=== PATIENT | female | born 1960 | race Caucasian/White ===

== ENCOUNTER 2017-08-06 09:13 | Emergency (ER) | payer SELFPAY ==
[2017-08-06 10:06] VITALS: BP 150/90
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
== END 2017-08-06 10:27 | disposition home or self-care (01) ==
LOC: UCEAST 09:13
DX: S40.022A Contusion of left upper arm, initial encounter (principal); E11.9 Type 2 diabetes mellitus without complications; I10 Essential (primary) hypertension; S00.432A Contusion of left ear, initial encounter; V43.52XA Car driver injured in collision with other type car in traffic accident, initial encounter; Y92.9 Unspecified place or not applicable
CPT/HCPCS: 99211; G0463

== ENCOUNTER 2017-11-27 13:46 | Emergency (ER) | payer BC, OTHER ==
[2017-11-27 14:12] VITALS: BP 152/89
--- NOTE | 2017-11-27 14:17 | UC ---
Respiratory Complaint HPI - HPI Summary HPI Summary: 57 y/o female presents to the urgent care c/o dry cough with cold symptoms for the past 5 days. Symptoms have worsen for the past 2 days. She now has SOB, SNYDER and wheezing. She has Hx of asthma that has been controlled for many years. She doesn't have and albuterol inhaler. Nasal congestion with yellowish nasal discharge. Pt reports she had the influenza vaccine last year. Pt denies fever, chest pain,abdominal pain, N/V/D - History of Current Complaint Chief Complaint: UCRespiratory Stated Complaint: COUGH Time Seen by Provider: 11/27/17 14:16 Hx Obtained From: Patient Hx Last Menstrual Period: 02/02/14 ?: No - menopausal Onset/Duration: Gradual Onset, Lasting Days - 5 days, Still Present, Worse Since - 2 days Timing: Constant Severity Initially: Mild Severity Currently: Moderate Pain Intensity: 2 - headache Pain Scale Used: 0-10 Numeric Character: Cough: Nonproductive Aggravating Factors: Recumbent Position Alleviating Factors: OTC Meds Associated Signs And Symptoms: Positive: Chills, Wheezing, URI, Nasal Congestion , Sinus Discomfort. Negative: Fever - Risk Factors Pulmonary Embolism Risk Factors: Negative Cardiac Risk Factors: Negative Pseudomonas Risk Factors: Negative Tuberculosis Risk Factors: Negative - Allergies/Home Medications Allergies/Adverse Reactions: Allergies Allergy/AdvReac Type Severity Reaction Status Date / Time Lisinopril Allergy Coughing Verified 11/27/17 14:03 Home Medications: Home Medications Ibuprofen TAB* [Advil TAB*] 400 mg PO Q6H PRN 11/27/17 [History Confirmed ] Multiple Vitamins W/ Minerals [Multivitamin Womens] 1 tab PO DAILY 11/27/17 [ History Confirmed 11/27/17] Phenylephrine-Chlorpheniramine [Pamela-[place] Plus Cold & 5-2-10-325 mg] 1 cap PO PRN 11/27/17 [History] PMH/Surg Hx/FS Hx/Imm Hx Previously Healthy: Yes Cardiovascular History: Hypertension - diet control Respiratory History: Asthma - Surgical History Surgical History: Yes Surgery Procedure, Year, and Place: Gallbladder, D&C, Hernia repair x2, tubal, tonsilectomy, bypass sleeve - Family History Known Family History: Positive: Hypertension, Diabetes - Social History Occupation: Employed Full-time Lives: With Family Alcohol Use: None Substance Use Type: None Smoking Status (MU): Never Smoked Tobacco Household Exposure Type: Cigarettes - Immunization History Most Recent Influenza Vaccination: JUL 2017 Review of Systems Constitutional: Chills Skin: Negative Eyes: Negative ENT: Nasal Discharge, Sinus Congestion Respiratory: Shortness Of Breath, Cough, Other - wheezing Cardiovascular: Negative Gastrointestinal: Negative Genitourinary: Negative Motor: Negative Neurovascular: Negative Musculoskeletal: Negative Neurological: Headache Psychological: Negative Is Patient Immunocompromised?: No All Other Systems Reviewed And Are Negative: Yes Physical Exam Triage Information Reviewed: Yes Vital Signs: Initial Vital Signs Temp 98.8 F 11/27/17 14:05 Pulse 74 11/27/17 14:05 Resp 20 11/27/17 14:05 BP 152/89 11/27/17 14:05 Pulse Ox 99 11/27/17 14:05 - Additional Comments VITAL SIGNS: Reviewed. GENERAL: Patient is a well developed and nourished female with w/o any apparent acute distress. Pt able to speak in full sentences. HEAD AND FACE: Normocephalic and atraumatic. EYES: PERRLA, EOMI x 2, No injected conjunctiva. EARS: Hearing grossly intact. Ear canals and tympanic membranes WNL MOUTH: Dry oral mucosa. NECK: Supple, trachea is midline, no adenopathy, no JVD, no carotid bruit. CHEST: Symmetric, No intercostal or abdominal retraction, LUNGS: Positive breath sounds. Scattered bilateral wheezing, mild rhonchi. No crackles or rales CVS: RRR,, S1 and S2 present, no murmurs or gallops appreciated. ABDOMEN: Soft, non-tender. No signs of distention. Positive BS. No rebound, no guarding, and no masses palpated. EXTREMITIES: FROM in all major joints, no edema, no cyanosis or clubbing. NEURO: Alert and oriented x 3. No acute neurological deficits. Speech is normal and follows commands. SKIN: Dry and warm UC Diagnostic Evaluation - Laboratory O2 Sat by Pulse Oximetry: 99 Respiratory Course/Dx - Course Course Of Treatment: 57 y/o female presents to the urgent care c/o dry cough with cold symptoms for the past 5 days. Symptoms have worsen for the past 2 days. She now has SOB, SNYDER and wheezing. She has Hx of asthma that has been controlled for many years. She doesn't have and albuterol inhaler. Nasal congestion with yellowish nasal discharge. Pt reports she had the influenza vaccine last year. Pt denies fever, chest pain,abdominal pain, N/V/D. Hx obtained. Asthma exacerbation: due to Acute Bronchitis: Albuterol Treatment: 1 Tx given to patient and Prednisone 60mg PO . Patient tolerated well treatment and lungs improved, mild wheezing only in posterior RT lung, O2 sat 99%. Pt RX Z-steven. Albuterol inhaler, Prednisone PO taper dose. The patient was recommended to increase fluid intake. Take medications as recommended. Pt's BP is elevated today advised to decrease salt in diet, monitor BP and f/u with PCP for further management. Patient Advised to return to the clinic or go to the nearest ER if symptoms do not improve or worsen. Patient understood and agree with plan of care. - Differential Dx/Diagnosis Differential Diagnosis/HQI/PQRI: Asthma, Bronchitis, Influenza, Lower Resp Infection, Sinusitis Provider Diagnoses: 1- Acute asthma exacerbation. 2-Acute bronchitis. 3- Uncontrolled HTN Discharge - Discharge Plan Condition: Stable Disposition: HOME Prescriptions: Albuterol 2.5MG/3ML (0.083%)* [Ventolin 2.5 MG/3 ML NEB.TWIN*] 2.5 mg INH Q6H #1 steven Albuterol HFA INHALER* [Ventolin HFA Inhaler*] 2 puff INH Q4H PRN #1 mdi PRN Reason: Wheezing Azithromyxin STEVEN (NF) [Z-Steven (Zithromax) 250 mg tabs #6] 2 tab PO .TODAY, THEN 1 DAILY #6 tab Benzonatate CAP* [Tessalon 100 MG CAP*] 100 mg PO TID #21 cap predniSONE TAB* [Deltasone TAB*] 20 mg PO DAILY #8 tab Patient Education Materials: Asthma (ED), Acute Bronchitis (ED), Low-Sodium Diet (ED) Forms: *Work Release Referrals: Artemio Heaton MD [Primary Care Provider] - Additional Instructions: 1-Please take full course of antibiotic to avoid resistance. 2-Take Tessalon PO tabs as directed and use the albuterol inhaler to alleviate cough. Increase fluid intake, rest and eat well. 3- If symptoms do not improve or worsen or your develop SOB with fever and severe wheezing please go immediately to the ER further evaluation and treatment. 4- F/u with your PCP in 2-3 days for further management on your Asthma 5-Your BP is elevated today. please decrease salt in your diet, monitor BP and if it continues to be elevated please f/u with your PCP for further management
[2017-11-27] MEDS ORDERED: predniSONE TAB* 20 MG PO ONE (14:33)
[2017-11-27] MEDS ORDERED: Albuterol 2.5 MG/3 ML NEB.SOL* (0.083%) INH ONE (14:34)
== END 2017-11-27 15:16 | disposition home or self-care (01) ==
LOC: UCCORT 13:46
DX: J45.901 Unspecified asthma with (acute) exacerbation (principal); I10 Essential (primary) hypertension
CPT/HCPCS: 87502; 99212; G0463; J7512

== ENCOUNTER 2018-12-30 18:05 | Emergency (ER) | payer BC ==
[2018-12-30 18:15] VITALS: BP 178/80
[2018-12-30] MEDS ORDERED: Ibuprofen TAB* 600 MG PO ONE (18:39)
--- NOTE | 2018-12-30 18:42 | UC ---
Lower Extremity/Ankle HPI - HPI Summary HPI Summary: 58 yo female presents with right foot and ankle pain. She tells me that 2 days ago while walking she developed right foot pain that was on the pad of her foot. Has been persisting since that time and now feels it go up into the lateral aspect of her ankle. She is ambulatory without assistance, but has a significant limp. Has been taking advil for pain with mild relief. Denies specific injury, numbness, or tingling. - History of Current Complaint Chief Complaint: UCLowerExtremity Stated Complaint: FOOT AND ANKLE PAIN Time Seen by Provider: 12/30/18 18:35 Hx Obtained From: Patient Hx Last Menstrual Period: 02/02/14 Onset/Duration: Sudden Onset Severity Initially: Moderate Severity Currently: Moderate Pain Intensity: 7 Pain Scale Used: 0-10 Numeric Aggravating Factor(s): Standing, Ambulation Alleviating Factor(s): Rest, Elevation Able to Bear Weight: Yes - Allergies/Home Medications Allergies/Adverse Reactions: Allergies Allergy/AdvReac Type Severity Reaction Status Date / Time lisinopril Allergy Coughing Verified 12/30/18 18:15 lasix Allergy Unknown Uncoded 04/25/18 08:27 Reaction Details Home Medications: Home Medications Ibuprofen TAB* [Advil TAB*] 400 mg PO Q6H PRN 12/30/18 [History Confirmed ] Mv-Mn/Folic Acid/Calcium/Vit K [Women's 50 Plus Daily Formula] 1 each PO DAILY 12/30/18 [History Confirmed 12/30/18] PMH/Surg Hx/FS Hx/Imm Hx Cardiovascular History: Hypertension - Surgical History Surgical History: Yes Surgery Procedure, Year, and Place: Gallbladder, D&C, Hernia repair x2, tubal, tonsilectomy, bypass sleeve - Family History Known Family History: Positive: Hypertension, Diabetes - Social History Occupation: Employed Full-time Lives: With Family Alcohol Use: None Substance Use Type: None Smoking Status (MU): Never Smoked Tobacco Household Exposure Type: Cigarettes - Immunization History Most Recent Influenza Vaccination: JUL 2017 Review of Systems All Other Systems Reviewed And Are Negative: Yes Constitutional: Positive: Negative Respiratory: Positive: Negative Cardiovascular: Positive: Negative Neurovascular: Positive: Negative Musculoskeletal: Positive: Other: - Right foot and ankle pain Neurological: Positive: Negative Psychological: Positive: Negative Physical Exam - Summary Physical Exam Summary: GENERAL: NAD. WDWN. No pain distress. SKIN: No rashes, sores, lesions, or open wounds. CHEST: No accessory muscle use. Breathing comfortably and in no distress. CV: Pulses intact PT and DP. Cap refill <2seconds MSK: RIGHT FOOT: Mild TTP along 5th MT. Strength 5/5. No edema or obvious bony deformities. RIGHT ANKLE: Mild TTP over lateral aspect. Negative talar tilt. No increased laxity. Negative Myrtle test. NEURO: Alert. Sensations intact and symmetric B/L LEs PSYCH: Age appropriate behavior. Triage Information Reviewed: Yes Vital Signs: Initial Vital Signs Temp 97.3 F 12/30/18 18:09 Pulse 79 12/30/18 18:09 Resp 16 12/30/18 18:09 BP 178/80 12/30/18 18:09 Pulse Ox 100 12/30/18 18:09 Vital Signs Reviewed: Yes Lower Extremity Course/Dx - Course Course Of Treatment: XR: No radiologist reading after 1800, therefore wet read by myself is negative for fracture. Suspect foot strain. Discussed with pt and advised to continue RICE and use a CAM boot for relief. She says that she has a CAM boot at home and will use this. F/u with PCP if symptoms do not improve. - Differential Dx/Diagnosis Provider Diagnosis: Right foot strain Discharge - Sign-Out/Discharge Documenting (check all that apply): Patient Departure All imaging exams completed and their final reports reviewed: No - Discharge Plan Condition: Stable Disposition: HOME Patient Education Materials: Metatarsalgia (DC) Forms: *Work Release Referrals: Artemio Heaton MD [Primary Care Provider] - Additional Instructions: If you develop a fever, shortness of breath, chest pain, new or worsening symptoms - please call your PCP or go to the ED. Your blood pressure was high at todays visit. Please see your primary provider within 4 weeks for recheck and re-evaluation. Rest, Ice, and Elevate your foot. If your symptoms do not improve within a few days, please be rechecked by your primary doctor - Billing Disposition and Condition Condition: STABLE Disposition: Home
--- NOTE | 2018-12-31 08:32 | UC ---
- EKG/XRAY/CT XRAY: ankle - Right foot and ankle - No acute fracture seen Course/Dx - Diagnoses Provider Diagnoses: Right foot strain Discharge - Sign-Out/Discharge Documenting (check all that apply): Post-Discharge Follow Up All imaging exams completed and their final reports reviewed: Yes - Discharge Plan Condition: Stable Disposition: HOME Patient Education Materials: Metatarsalgia (DC) Forms: *Work Release Referrals: Artemio Heaton MD [Primary Care Provider] - Additional Instructions: If you develop a fever, shortness of breath, chest pain, new or worsening symptoms - please call your PCP or go to the ED. Your blood pressure was high at todays visit. Please see your primary provider within 4 weeks for recheck and re-evaluation. Rest, Ice, and Elevate your foot. If your symptoms do not improve within a few days, please be rechecked by your primary doctor - Billing Disposition and Condition Condition: STABLE Disposition: Home
== END 2018-12-30 19:26 | disposition home or self-care (01) ==
LOC: UCEAST 18:05
DX: S96.911A Strain of unspecified muscle and tendon at ankle and foot level, right foot, initial encounter (principal); I10 Essential (primary) hypertension; Z91.040 Latex allergy status; Z88.8 Allergy status to other drugs, medicaments and biological substances; X58.XXXA Exposure to other specified factors, initial encounter; Y92.9 Unspecified place or not applicable
CPT/HCPCS: 99211; A9270-GY; G0463

== ENCOUNTER 2019-04-28 17:17 | Emergency (ER) | payer BC ==
[2019-04-28 17:47] VITALS: BP 147/73
--- NOTE | 2019-04-28 18:02 | UC ---
Skin Complaint HPI - HPI Summary HPI Summary: 58 yo with chronic sever LE edema presents with lwft lower leg redness (to the anterior leg) no fever - History of Current Complaint Chief Complaint: UCLowerExtremity Time Seen by Provider: 04/28/19 17:55 Stated Complaint: LEG SWELLING, REDNESS Hx Obtained From: Patient Hx Last Menstrual Period: 02/02/14 Onset/Duration: Gradual Onset, Lasting Hours Timing: Constant Onset Severity: Mild Current Severity: Moderate Pain Intensity: 2 Pain Scale Used: 0-10 Numeric Location: Diffuse Character: Swelling, Redness Aggravating Factor(s): Nothing Alleviating Factor(s): Nothing Associated Signs & Symptoms: Positive: Nausea, Tenderness - Allergy/Home Medications Allergies/Adverse Reactions: Allergies Allergy/AdvReac Type Severity Reaction Status Date / Time lisinopril Allergy Coughing Verified 04/28/19 17:47 lasix Allergy Unknown Uncoded 04/28/19 17:47 Reaction Details Home Medications: Home Medications Allopurinol TAB* [Zyloprim 100 MG TAB*] 100 mg PO DAILY 04/28/19 [History Confirmed 04/28/19] Valsartan TAB* [Diovan TAB*] 40 mg PO DAILY 04/28/19 [History Confirmed 04/28/19 ] amLODIPine TAB* [Norvasc 5 mg TAB*] 5 mg PO DAILY 04/28/19 [History Confirmed ] PMH/Surg Hx/FS Hx/Imm Hx Previously Healthy: Yes - Surgical History Surgical History: Yes Surgery Procedure, Year, and Place: Gallbladder, D&C, Hernia repair x2, tubal, tonsilectomy,. bypass sleeve, 2014 - Family History Known Family History: Positive: Hypertension, Diabetes - Social History Alcohol Use: None Substance Use Type: None Smoking Status (MU): Never Smoked Tobacco Household Exposure Type: Cigarettes - Immunization History Most Recent Influenza Vaccination: JUL 2017 Review of Systems All Other Systems Reviewed And Are Negative: Yes Constitutional: Positive: Negative Skin: Positive: Negative Eyes: Positive: Negative ENT: Positive: Negative Respiratory: Positive: Negative Cardiovascular: Positive: Negative Gastrointestinal: Positive: Negative Genitourinary: Positive: Negative Motor: Positive: Negative Musculoskeletal: Positive: Edema Neurological: Positive: Negative Psychological: Positive: Negative Physical Exam Triage Information Reviewed: Yes Appearance: Well-Appearing, No Pain Distress, Other: - BMI58 Vital Signs: Initial Vital Signs Temp 98.5 F 04/28/19 17:42 Pulse 76 04/28/19 17:42 Resp 16 04/28/19 17:42 BP 147/73 04/28/19 17:42 Pulse Ox 98 04/28/19 17:42 Vital Signs Reviewed: Yes Eyes: Positive: Conjunctiva Clear ENT: Positive: Hearing grossly normal. Negative: Nasal congestion, Nasal drainage, Trismus, Muffled voice, Hoarse voice Respiratory: Positive: Lungs clear, Normal breath sounds, No respiratory distress, No accessory muscle use Cardiovascular: Positive: RRR, No Murmur Musculoskeletal: Positive: Edema @ - ++++ LE Neurological: Positive: Alert Psychological Exam: Normal Skin: Positive: Other - red over left ant joya, some trivial breaks in skin due to swelling Course/Dx - Diagnoses Provider Diagnosis: Cellulitis of left leg Discharge - Sign-Out/Discharge Documenting (check all that apply): Patient Departure All imaging exams completed and their final reports reviewed: No Studies - Discharge Plan Condition: Stable Disposition: HOME Prescriptions: Cephalexin CAP* [Keflex CAP*] 500 mg PO QID #28 cap Patient Education Materials: Cellulitis (ED) Forms: *Gen. Provider Communication, *Work Release Referrals: Artemio Heaton MD [Primary Care Provider] - Additional Instructions: elevate recheck on 2-3 days if not improve see your MD next week as planned - Billing Disposition and Condition Condition: STABLE Disposition: Home
== END 2019-04-28 18:10 | disposition home or self-care (01) ==
LOC: UCEAST 17:17
DX: L03.116 Cellulitis of left lower limb (principal)
CPT/HCPCS: 99212; G0463